=== PATIENT | female | born 1980 | race Caucasian/White ===

== ENCOUNTER 2017-12-25 03:18 | Emergency (ER) | payer MEDICAID, OTHER ==
[~2017-12-25] VITALS: Ht 175.3 cm; Wt 95.3 kg
[~2017-12-25 03:18] MED LIST: PREN-89 PO
[2017-12-25 03:30] VITALS: BP_SYST 131
[2017-12-25] MEDS ORDERED: NACL 0.9% 1,000 ML IV ONE (04:07)
[2017-12-25 04:23] LABS: BILIRUBIN,URINE NEGATIVE (NEGATIVE); BLOOD, URINE 3+ (NEGATIVE); CLARITY/URINE SL HAZY (CLEAR); COLOR,URINE YELLOW (YELLOW); GLUCOSE,URINE NEGATIVE (NEGATIVE); KETONES,URINE NEGATIVE (NEGATIVE); LEUKOCYTE ESTERASE ,URINE TRACE (NEGATIVE); NITRITE, URINE NEGATIVE (NEGATIVE); PROTEIN URINE TRACE (NEGATIVE); UROBILINOGEN,URINE 0.2 (0.2-1.0)
[2017-12-25 04:37] LABS: BASOPHILS # (AUTO) 0.2 K/uL (0.0-0.2); BASOPHILS % (AUTO) 1.8 % (0.0-2.0); EOSINOPHILS # (AUTO) 0.1 K/uL (0.0-0.4); EOSINOPHILS % (AUTO) 1.2 % (0.0-4.0); HEMATOCRIT 39.3 % (36-48); HEMOGLOBIN 13.2 g/dL (12.0-16.0); LYMPHOCYTES # (AUTO) 1.5 K/uL (1.0-5.5); MEAN CORPUSCULAR HEMOGLOBIN 31 pg (27-31); MEAN CORPUSCULAR HGB CONC 34 % (32-36); MEAN CORPUSCULAR VOLUME 91 fL (79.0-98.0); MONOCYTES # (AUTO) 0.3 K/uL (0.0-1.0); MONOCYTES % (AUTO) 2.3 % (1.7-9.3); NEUTROPHILS # (AUTO) 8.9 K/uL (1.8-7.7); NEUTROPHILS % (AUTO) 80.7 % (40.0-70.0); PLATELET COUNT (AUTO) 182 K/uL (130-430); RED BLOOD CELL COUNT(AUTO) 4.34 MIL/uL (4.2-6.2)
[2017-12-25 04:38] LABS: CREATININE 0.71 mg/dL (0.55-1.30); POTASSIUM 3.8 mmol/L (3.5-5.1)
[2017-12-25 04:50] LABS: ALBUMIN 3.4 g/dL (3.4-4.8); TOTAL BILIRUBIN 0.2 mg/dL (0.0-1.0)
[2017-12-25 04:58] LABS: BACTERIA,URINE FEW /HPF (None Seen); RBC,URINE 20-50 /HPF (0-3)
[2017-12-25] MEDS ORDERED: KETOROLAC TROMETHAMINE 60 MG/2 ML VIAL IM ONE (05:00)
[2017-12-25] MEDS ORDERED: KETOROLAC TROMETHAMINE 30 MG VIAL IVP ONE (05:00)
[2017-12-25] MEDS ORDERED: KETOROLAC TROMETHAMINE 30 MG VIAL ONE (06:23)
[2017-12-25 06:39] VITALS: BP_SYST 127
[2017-12-25] MEDS ORDERED: KETOROLAC TROMETHAMINE 30 MG VIAL IM ONE (06:45)
== END 2017-12-25 06:39 | disposition home or self-care (01) ==
LOC: SED 03:18
DX: N20.0 Calculus of kidney (principal); N39.0 Urinary tract infection, site not specified
CPT/HCPCS: 36415; 74176; 80053; 81000; 81025; 85025; 87086; 96372; 96374; 99285; J1885; J7030

== ENCOUNTER 2023-05-05 11:28 | Emergency (ER) | payer OTHER, MEDICAID ==
[~2023-05-05] VITALS: Ht 175.3 cm; Wt 94.8 kg
[2023-05-05 11:28] VITALS: BP_SYST 121; PULSE 108; RESP 19; TEMP 97.7; O2SAT 100
[2023-05-05] MEDS: LORazepam 1 MG TABLET PO ONE (12:05)
[2023-05-05 14:06] LABS: BASOPHILS % (AUTO) 0.3 % (0.0-2.0); EOSINOPHILS % (AUTO) 0.1 % (0.0-4.0); HEMATOCRIT 41.1 % (36-48); HEMOGLOBIN 14.1 g/dL (12.0-16.0); LYMPHOCYTES # (AUTO) 1.2 K/uL (1.0-5.5); LYMPHOCYTES % (AUTO) 10.5 % (20.5-51.5); MEAN CORPUSCULAR HEMOGLOBIN 31 pg (27-31); MEAN CORPUSCULAR HGB CONC 34 % (32-36); MEAN CORPUSCULAR VOLUME 89 fL (79.0-98.0); MONOCYTES # (AUTO) 0.3 K/uL (0.0-1.0); MONOCYTES % (AUTO) 2.9 % (1.7-9.3); NEUTROPHILS # (AUTO) 9.8 K/uL (1.8-7.7); NEUTROPHILS % (AUTO) 86.2 % (40.0-70.0); PLATELET COUNT (AUTO) 181 K/uL (130-430); RED BLOOD CELL COUNT(AUTO) 4.61 MIL/uL (4.2-6.2); RED CELL DISTRIBUTION WIDTH 13.2 % (9.0-15.0); WHITE BLOOD COUNT (AUTO) 11.4 K/uL (4.8-10.8)
[2023-05-05 14:33] LABS: ANION GAP 10 (5-15); CALCIUM 9.5 mg/dL (8.4-11.0); CARBON DIOXIDE 26 mmol/L (23-29); CHLORIDE 102 mmol/L (98-107); CREATININE 0.67 mg/dL (0.55-1.30); FREE T4 (FREE THYROXINE) 1.1 ng/dl (0.8-1.5); GFR AFRICAN AMERICAN 125 mL/min (>90); GFR NON AFRICAN-AMERICAN 103 mL/min (>90); GLUCOSE 93 mg/dL (74-106); SODIUM SERUM 138 mmol/L (136-145); THYROID STIMULATING HORMONE 0.83 uIu/mL (0.36-3.74); UREA NITROGEN, BLOOD 14 mg/dL (8-21)
[2023-05-05 15:05] VITALS: BP_SYST 128; PULSE 84; RESP 22; TEMP 97.7; O2SAT 100
== END 2023-05-05 15:05 | disposition home or self-care (01) ==
LOC: SED 11:28
DX: F41.1 Generalized anxiety disorder (principal); F12.929 Cannabis use, unspecified with intoxication, unspecified; Z91.018 Allergy to other foods
CPT/HCPCS: 36415; 71045; 80048; 83880; 84439; 84443; 84484; 85025; 93005; 99285